=== PATIENT | female | born 1995 | race African-American/Black ===

== ENCOUNTER 2018-10-14 08:58 | Emergency (ER) | payer MEDICAID ==
[~2018-10-14] VITALS: Ht 167.6 cm; Wt 50.0 kg
[2018-10-14 10:27] LABS: BASOPHILS % 0.3 % (0.0-2.0); EOSINOPHILS % 0.8 % (0.0-5.0); HEMATOCRIT. 33.9 % (36.0-48.0); HEMOGLOBIN. 11.1 g/dL (12.0-16.0); LYMPHOCYTES % 37.2 % (20.0-50.0); MEAN CORPUSCULAR HEMOGLOBIN 26.5 pg (28.0-32.0); MEAN CORPUSCULAR VOLUME 80.9 fL (81.0-99.0); MEAN PLATELET VOLUME 8.3 fl (7.4-10.4); MONOCYTES % 11.4 % (2.0-8.0); NEUTROPHILS % 50.3 % (40.0-76.0); PLATELET 227 x1000/uL (130-400); RED BLOOD CELL COUNT 4.19 mill/uL (4.2-5.4); RED CELL DISTRIBUTION WIDTH 14.4 % (11.6-14.6)
[2018-10-14 10:59] LABS: B-HCG QUANTITATIVE 38953 mIU/mL (<3); CHLORIDE 109 mEq/L (98-107)
[2018-10-14 12:23] VITALS: BP 106/61
== END 2018-10-14 12:32 | disposition home or self-care (01) ==
LOC: ER 08:58
DX: O20.0 Threatened abortion (principal); F17.200 Nicotine dependence, unspecified, uncomplicated; Z3A.01 Less than 8 weeks gestation of pregnancy
CPT/HCPCS: 36415; 76801; 81025; 84702; 86850; 86900; 99284

== ENCOUNTER 2019-08-12 23:34 | Emergency (ER) | payer MEDICAID ==
[~2019-08-12] VITALS: Ht 167.6 cm; Wt 51.0 kg
[2019-08-13 00:05] VITALS: BP 97/64
== END 2019-08-13 04:47 | disposition left against medical advice (07) ==
LOC: ER 23:34
DX: Z53.21 Procedure and treatment not carried out due to patient leaving prior to being seen by health care provider (principal)